=== PATIENT | male | born 1950 | race Caucasian/White ===

== ENCOUNTER → 2016-10-24 | Outpatient (CLI) | payer OTHER | LOC: MMPC 10:00 | PROVIDERS: ATTEND Physician Assistant | DX: S12.111D Posterior displaced Type II dens fracture, subsequent encounter for fracture with routine healing (principal); H53.9 Unspecified visual disturbance; R41.3 Other amnesia | CPT/HCPCS: 99214; G0463 ==

== ENCOUNTER → 2016-10-30 | Outpatient (CLI) | payer OTHER | LOC: LAB 15:58 | PROVIDERS: ATTEND Neurological Surgery | DX: S12.100D Unspecified displaced fracture of second cervical vertebra, subsequent encounter for fracture with routine healing (principal) | CPT/HCPCS: 36415; 82565; 84520 ==

== ENCOUNTER → 2016-11-15 | Outpatient (CLI) | payer OTHER | LOC: MMPC 10:00 | PROVIDERS: ATTEND Neurological Surgery | DX: S12.100D Unspecified displaced fracture of second cervical vertebra, subsequent encounter for fracture with routine healing (principal) | CPT/HCPCS: 99212; G0463 ==

== ENCOUNTER → 2016-11-28 | Outpatient (CLI) | payer OTHER ==
--- NOTE | 2016-11-28 14:40 | EKG ---
[address] [address] Measurements Intervals [place] Rate: 87 P: 65 SD: 152 QRS: 16 QRSD: 98 T: 52 QT: 362 QTc: 407 Interpretive Statements SINUS RHYTHM WITH FREQUENT SUPRAVENTRICULAR PREMATURE COMPLEXES POSSIBLE ANTERIOR MYOCARDIAL INFARCTION [30 ms Q WAVE IN V3/V4, OR R < 0.2 mV IN V4], OF INDETERMINATE AGE (No acute injury pattern) No previous ECG available for comparison Electronically Signed On 11-28-16 16:14:05 [facility] by Sal Zamorano MD [id number]
== END ==
LOC: MOB EKG 14:23
PROVIDERS: ATTEND Nurse Practitioner Family
DX: R00.2 Palpitations (principal); I10 Essential (primary) hypertension
CPT/HCPCS: 93005; 93010

== ENCOUNTER → 2016-11-30 | Outpatient (CLI) | payer OTHER | LOC: MMPC 09:00 | PROVIDERS: ATTEND Nurse Practitioner Family | DX: I10 Essential (primary) hypertension (principal); R00.2 Palpitations | CPT/HCPCS: 99213; G0463 ==

== ENCOUNTER → 2016-12-04 | Outpatient (CLI) | payer OTHER ==
--- NOTE | 2016-12-07 11:48 | HOLTER ---
[facility] Interpretive Statements Forty eight hour holter monitor done for history of paroxysmal atrial fibrillation, frequent PACs and palpitations. A good activity diary was kept with no recorded symptoms. There were 264,251 beats recorded with 189,054 normal beats. The average sinus rate was 96 with a minimum rate of 58 and maximum sinus rate of 126. The longest pause was 1.5 seconds. There were 303 VPCs with one couplet. There were 74,894 PACs with 25,490 singlets, 18,670 pairs and 3856 runs up to rate of 235 and averaging 2812 PACs per hour. The longest run was 7 beats. There was also frequent atrial bigeminey and trigeminey. Recorded atrial fibrillation was in error as these strips were sinus tachycardia with brief runs of atrial tachycardia. There was frequent baseline deviation and artifact present. No diagnostic ST-T wave changes were seen. IMP: [place] abnormal holter monitor with frequent PACs averaging 2812 per hour with frequent bigeminey, trigeminey and frequent brief runs of SVT to rates of up to 236. No atrial fibrillation or significant ventricular ectopy was seen and no diagnostic ST-T wave changes with tachycardia were observed. Electronically Signed On 12-07-16 18:19:10 [facility] by Jacques Rm [id number]
== END ==
LOC: EKG 13:51
PROVIDERS: ATTEND Specialist
DX: R00.2 Palpitations (principal); I49.1 Atrial premature depolarization; I10 Essential (primary) hypertension
CPT/HCPCS: 99204; G0463; 93225; 93226; 93227

== ENCOUNTER → 2016-12-14 | Outpatient (CLI) | payer OTHER | LOC: US 07:46 | PROVIDERS: ATTEND Specialist | DX: I49.1 Atrial premature depolarization (principal); I10 Essential (primary) hypertension; I51.7 Cardiomegaly | CPT/HCPCS: 93306 ==

== ENCOUNTER → 2016-12-18 | Outpatient (CLI) | payer OTHER ==
--- NOTE | 2016-12-18 17:30 | EKG ---
[address] [place] [address] Measurements Intervals [place] Rate: 67 P: 51 OK: 166 QRS: 18 QRSD: 97 T: -4 QT: 384 QTc: 399 Interpretive Statements SINUS RHYTHM WITH OCCASIONAL SUPRAVENTRICULAR PREMATURE COMPLEXES ANTEROSEPTAL MYOCARDIAL INFARCTION OF INDETERMINATE AGE Compared to ECG 11/28/2016 14:41:58 No significant changes Electronically Signed On 12-19-16 14:01:50 [facility] by Jacques Rm [id number]
== END ==
LOC: MOB EKG 10:59
PROVIDERS: ATTEND Specialist
DX: I25.10 Atherosclerotic heart disease of native coronary artery without angina pectoris (principal); R00.2 Palpitations; I10 Essential (primary) hypertension; F17.220 Nicotine dependence, chewing tobacco, uncomplicated
CPT/HCPCS: 93005; 93010; 99213; G0463